=== PATIENT | male | born 1980 | race Caucasian/White ===

== ENCOUNTER 2018-08-21 20:06 | Emergency (ER) | payer OTHER ==
--- NOTE | 2018-08-21 21:32 | ED ---
Bite Injury/Animal - HPI Summary HPI Summary: 37-year-old male presents with dog bite today. He states [place] He states that he was grabbing the dog and was [place] it over [place] the [place] police officer when the dog got scared and bite him on the face and his hand. He states the dog's wedger did not have any information about the dog as it was a new dog to them. He states that he went to the neighboring hospital and was given tetanus but then he left and came here for wound closure. Has no medical conditions. Tetanus was just given today. - History of Current Complaint Chief Complaint: EDAnimalBite Stated Complaint: DOG BITE Time Seen by Provider: 08/21/18 20:16 Pain Intensity: 7 - Allergies/Home Medications Allergies/Adverse Reactions: Allergies Allergy/AdvReac Type Severity Reaction Status Date / Time No Known Allergies Allergy Verified 08/21/18 20:11 Home Medications: Home Medications Ibuprofen TAB* [Advil TAB*] 1,000 mg PO Q6H PRN 08/21/18 [History Confirmed ] PMH/Surg Hx/FS Hx/Imm Hx Endocrine/Hematology History: Denies: Hx Diabetes, Hx Thyroid Disease Cardiovascular History: Denies: Hx Hypertension Respiratory History: Reports: Hx Asthma - in childhood Denies: Hx Chronic Obstructive Pulmonary Disease (COPD) GI History: Denies: Hx Ulcer - Immunization History Date of Tetanus Vaccine: utd Date of Influenza Vaccine: unk Infectious Disease History: Yes Infectious Disease History: Reports: Hx Shingles - last year, History Other Infectious Disease - shingles Denies: Hx Clostridium Difficile, Hx Hepatitis, Hx Human Immunodeficiency Virus (HIV), Traveled Outside the [place] in Last 30 Days - Family History Known Family History: Positive: None - Social History Alcohol Use: Occasionally Hx Substance Use: Yes Substance Use Type: Reports: Marijuana Substance Use Comment - Amount & Last Used: month or two ago Hx Tobacco Use: No Smoking Status (MU): Never Smoked Tobacco Review of Systems Negative: Fever Negative: Chest Pain Negative: Shortness Of Breath Positive: Other - dog bite face and left wrist All Other Systems Reviewed And Are Negative: Yes Physical Exam Triage Information Reviewed: Yes Vital Signs On Initial Exam: Initial Vitals Temp Pulse Resp BP Pulse Ox 99.4 F 104 16 157/90 98 08/21/18 20:06 08/21/18 20:06 08/21/18 20:06 08/21/18 20:06 08/21/18 20:06 Vital Signs Reviewed: Yes Appearance: Positive: Well-Appearing Skin: Positive: Warm, Dry, Other - puncture wounds and scratched left wrist and neck, 3cm by 1/2cm laceration of chin left side Head/Face: Positive: Normal Head/Face Inspection Eyes: Positive: Normal, Conjunctiva Clear ENT: Positive: Pharynx normal Respiratory/Lung Sounds: Positive: Clear to Auscultation, Breath Sounds Present Cardiovascular: Positive: Normal, RRR Musculoskeletal: Positive: Normal Neurological: Positive: Normal Psychiatric: Positive: Normal Procedures - Laceration/Wound Repair face Location: face Description: Irregular Length, Depth and Shape: 3cm by 1/2cm Irrigated w/ Saline (ccs): 1,000 Closure: Skin Adhesive, Single Layer Suture Type: Prolene Number of Sutures: 2 Diagnostics - Vital Signs Vital Signs Temp Pulse Resp BP Pulse Ox 08/21/18 20:06 99.4 F 104 16 157/90 98 - Laboratory Lab Statement: Any lab studies that have been ordered have been reviewed, and results considered in the medical decision making process. Bite Injury Course/Dx - Course Course Of Treatment: 37-year-old male presents with dog bite today. He states he was there was [place] He states that he was grabbing the dog and was handing it over to the [place] police officer when the dog got scared and bite him on the face and his hand. He states the dog's wedger did not have any information about the dog as it was a new dog to them. He states that he went to the neighboring hospital and was given tetanus but then he left and came here for wound closure. Has no medical conditions. Tetanus was just given today. On exam has multiple scratches and puncture wounds on left hand and face. has a 3 1/2cm by 1/2cm laceration of the face. cleaned area extensively and placed 2 sutures and steristrips due to cosmetic reasons. Explained that has a high likelihood of getting infected. Placed on Augmentin. Karishma contacted [facility] and said dog was not in their [place] so to contact [place] and they advised not to treat at moment and will contact patient if needed. warned if develop any signs of infection to return. patient understand and agrees with plan. - Diagnoses Differential Diagnosis/HQI/PQRI: Positive: Laceration, Puncture, Rabies Exposure Provider Diagnosis: Dog bite, Facial laceration Discharge - Sign-Out/Discharge Documenting (check all that apply): Patient Departure Patient Received Moderate/Deep Sedation with Procedure: No - Discharge Plan Condition: Good Disposition: HOME Prescriptions: Amoxicillin/Clavulanate TAB* [Augmentin TAB 875*] 875 mg PO BID #9 tab Patient Education Materials: [facility] (ED) Referrals: No Primary Care Phys,NOPCP [Primary Care Provider] - Additional Instructions: Wash area twice a day with soap and water Take Augmentin twice a day for 5 days suture removal in 5 days Take Tylenol or ibuprofen every 6 hours as needed for pain Ice Return to ED develop fever, spreading redness, or any new or worsening symptoms - Billing Disposition and Condition Condition: GOOD Disposition: Home
[2018-08-21] MEDS ORDERED: Amoxicillin/Clavulanate TAB* 875 MG PO ONE (21:33)
[2018-08-21 23:29] VITALS: BP 132/87
== END 2018-08-21 23:28 | disposition home or self-care (01) ==
LOC: ED 20:06
DX: S61.532A Puncture wound without foreign body of left wrist, initial encounter (principal); S11.93XA Puncture wound without foreign body of unspecified part of neck, initial encounter; S01.81XA Laceration without foreign body of other part of head, initial encounter; W54.0XXA Bitten by dog, initial encounter; Y92.410 Unspecified street and highway as the place of occurrence of the external cause
CPT/HCPCS: 12013; 99283; A9270-GY

== ENCOUNTER → 2018-08-22 19:23 | Emergency (ER) | payer OTHER ==
[~2018-08-22 19:23] MED LIST: Rabies Vaccine (RabAvert)* 2.5 UNITS VIAL IM ONE
[2018-08-22 19:46] VITALS: BP 153/97
--- NOTE | 2018-08-23 22:41 | ED ---
Bite Injury/Animal - HPI Summary HPI Summary: Patient complains of being bit by unknown dog yesterday. Patient was seen and evaluated here. [facility] was contacted and recommended no prophylactic rabies treatment and that they would contact patient after dog in quarantine. Patient feels uncomfortable with the way [facility] department as having situation as he believes are still has dog. Patient wishes to be treated for rabies and is willing to cover caused himself necessary. Patient has been advised caused of treatment may be around or greater than $3000. Patient understands and wishes to continue treatment. Denies any symptoms, injury or pain. - History of Current Complaint Chief Complaint: EDGeneral Stated Complaint: DOG BITE-08/21/18 Time Seen by Provider: 08/22/18 20:21 Hx Obtained From: Patient Onset of Injury: Happened days ago Type of Bite: Animal Has Animal Been Immunized?: Unknown Severity Currently: None Pain Intensity: 0 Pain Scale Used: 0-10 Numeric Associated Signs And Symptoms: Positive: Negative Animal Available for Observation: Yes Animal Control Notified: Yes - Allergies/Home Medications Allergies/Adverse Reactions: Allergies Allergy/AdvReac Type Severity Reaction Status Date / Time No Known Allergies Allergy Verified 08/22/18 19:47 PMH/Surg Hx/FS Hx/Imm Hx Endocrine/Hematology History: Denies: Hx Diabetes, Hx Thyroid Disease Cardiovascular History: Denies: Hx Hypertension Respiratory History: Reports: Hx Asthma - in childhood Denies: Hx Chronic Obstructive Pulmonary Disease (COPD) GI History: Denies: Hx Ulcer History: Denies: Hx Dialysis Sensory History: Denies: Hx Eye Prosthesis Opthamlomology History: Denies: Hx Legally Blind EENT History: Denies: Hx Deafness Neurological History: Denies: Hx Dementia Psychiatric History: Denies: Hx Autism - Immunization History Date of Tetanus Vaccine: utd Date of Influenza Vaccine: unk Infectious Disease History: No Infectious Disease History: Reports: Hx Shingles - last year, History Other Infectious Disease - shingles Denies: Hx Clostridium Difficile, Hx Hepatitis, Hx Human Immunodeficiency Virus (HIV), Traveled Outside the [place] in Last 30 Days - Family History Known Family History: Positive: None - Social History Alcohol Use: Occasionally Hx Substance Use: Yes Substance Use Type: Reports: Marijuana Substance Use Comment - Amount & Last Used: month or two ago Hx Tobacco Use: No Smoking Status (MU): Former Smoker Review of Systems Constitutional: Negative Eyes: Negative ENT: Negative Cardiovascular: Negative Respiratory: Negative Gastrointestinal: Negative Genitourinary: Negative Musculoskeletal: Negative Skin: Other Neurological: Negative Psychological: Normal All Other Systems Reviewed And Are Negative: Yes Physical Exam - Summary Physical Exam Summary: Bite wounds appear to be clean and dry and intact, no erythema or purulent drainage noted. Patient denies any other symptoms. Triage Information Reviewed: Yes Vital Signs On Initial Exam: Initial Vitals Temp Pulse Resp BP Pulse Ox 97.6 F 100 18 153/97 97 08/22/18 19:44 08/22/18 19:44 08/22/18 19:44 08/22/18 19:44 08/22/18 19:44 Vital Signs Reviewed: Yes Appearance: Positive: Well-Appearing Skin: Positive: Warm Head/Face: Positive: Normal Head/Face Inspection Eyes: Positive: Normal Neck: Positive: Supple Respiratory/Lung Sounds: Positive: Clear to Auscultation Cardiovascular: Positive: Normal Abdomen Description: Positive: Nontender Musculoskeletal: Positive: Normal Neurological: Positive: Normal Psychiatric: Positive: Normal AVPU Assessment: Alert - [place] Coma Scale Best Eye Response: 4 - Spontaneous Best Motor Response: 6 - Obeys Commands Best Verbal Response: 5 - Oriented Coma Scale Total: 15 Diagnostics - Vital Signs Vital Signs Temp Pulse Resp BP Pulse Ox 08/22/18 19:44 97.6 F 100 18 153/97 97 - Laboratory Lab Statement: Any lab studies that have been ordered have been reviewed, and results considered in the medical decision making process. Bite Injury Course/Dx - Course Course Of Treatment: Patient complains of being bit by unknown dog yesterday. Patient was seen and evaluated here. [facility] was contacted and recommended no prophylactic rabies treatment and that they would contact patient after dog in quarantine. Patient feels uncomfortable with the way [facility] as having situation as he believes are still has dog. Patient wishes to be treated for rabies and is willing to cover caused himself necessary. Patient has been advised caused of treatment may be around or greater than $3000. Patient understands and wishes to continue treatment. Denies any symptoms, injury or pain. Physical exam:e wounds appear to be clean and dry and intact, no erythema or purulent drainage noted. Patient denies any other symptoms. Patient left before medications arrived. - Diagnoses Provider Diagnosis: Animal bite Discharge - Sign-Out/Discharge Documenting (check all that apply): Patient Departure Patient Received Moderate/Deep Sedation with Procedure: No - Discharge Plan Condition: Stable Disposition: ELOPEMENT Referrals: No Primary Care Phys,NOPCP [Primary Care Provider] - - Billing Disposition and Condition Condition: STABLE Disposition: Elopement
== END | disposition home or self-care (01) ==
LOC: ED 19:23
DX: T14.8XXA Other injury of unspecified body region, initial encounter (principal); W54.0XXA Bitten by dog, initial encounter; Y92.9 Unspecified place or not applicable; Z53.21 Procedure and treatment not carried out due to patient leaving prior to being seen by health care provider; Z87.891 Personal history of nicotine dependence
CPT/HCPCS: 90471; 99282

== ENCOUNTER 2018-08-27 13:01 | Emergency (ER) | payer OTHER ==
[2018-08-27 14:18] VITALS: BP 132/94
--- NOTE | 2018-08-27 15:09 | ED ---
Skin Complaint - HPI Summary HPI Summary: Patient is a 37-year-old male who presents emergency department for suture removal. Patient was bit by a dog on 08/22 and had 2 sutures placed. Patient states he shaved his face today and believes one of the sutures pulled out. Patient denies wound pain, redness swelling or drainage. Symptoms are mild in severity. No modifying factors. - History of Current Complaint Chief Complaint: EDLacSutureRecheck Time Seen by Provider: 08/27/18 13:30 Stated Complaint: SUTURE REMOVAL Hx Obtained From: Patient Pain Intensity: 0 Pain Scale Used: 0-10 Numeric - Allergy/Home Medications Allergies/Adverse Reactions: Allergies Allergy/AdvReac Type Severity Reaction Status Date / Time No Known Allergies Allergy Verified 08/27/18 13:15 PMH/Surg Hx/FS Hx/Imm Hx Previously Healthy: Yes Endocrine/Hematology History: Denies: Hx Diabetes, Hx Thyroid Disease Cardiovascular History: Denies: Hx Hypertension Respiratory History: Reports: Hx Asthma - in childhood Denies: Hx Chronic Obstructive Pulmonary Disease (COPD) GI History: Denies: Hx Ulcer History: Denies: Hx Dialysis Sensory History: Denies: Hx Eye Prosthesis, Hx Legally Blind, Hx Deafness Opthamlomology History: Denies: Hx Eye Prosthesis, Hx Legally Blind Neurological History: Denies: Hx Dementia Psychiatric History: Denies: Hx Autism - Immunization History Date of Tetanus Vaccine: utd Date of Influenza Vaccine: unk Infectious Disease History: No Infectious Disease History: Reports: Hx Shingles - last year, History Other Infectious Disease - shingles Denies: Hx Clostridium Difficile, Hx Hepatitis, Hx Human Immunodeficiency Virus (HIV), Traveled Outside the [place] in Last 30 Days - Family History Known Family History: Positive: None - Social History Occupation: Employed Full-time Lives: With Family Alcohol Use: Occasionally Hx Substance Use: Yes Substance Use Type: Reports: Marijuana Substance Use Comment - Amount & Last Used: month or two ago Hx Tobacco Use: No Smoking Status (MU): Former Smoker Review of Systems Positive: Other - sutures to chin All Other Systems Reviewed And Are Negative: Yes Physical Exam Triage Information Reviewed: Yes Vital Signs On Initial Exam: Initial Vitals Temp Pulse Resp BP Pulse Ox 97.6 F 88 14 136/90 97 08/27/18 13:10 08/27/18 13:10 08/27/18 13:10 08/27/18 13:10 08/27/18 13:10 Vital Signs Reviewed: Yes Appearance: Positive: Well-Appearing - Pt. sitting on bed in NAD. Skin: Positive: Warm, Dry, Other - One suture noted to healing would to chin. No signs of infection Head/Face: Positive: Normal Head/Face Inspection Eyes: Positive: Normal, EOMI Neck: Positive: Supple Neurological: Positive: Normal, CN Intact II-III Psychiatric: Positive: Affect/Mood Appropriate Procedures - Procedure Summary Procedure Summary: One suture removed from chin laceration. Wound is healing well. No signs of infection. Pt. tolerated well. Diagnostics - Vital Signs Vital Signs Temp Pulse Resp BP Pulse Ox 08/27/18 14:17 98.1 F 84 19 132/94 98 08/27/18 13:10 97.6 F 88 14 136/90 97 - Laboratory Lab Statement: Any lab studies that have been ordered have been reviewed, and results considered in the medical decision making process. Course/Dx - Course Course Of Treatment: Patient presenting for suture removal. No signs of infection. One suture was removed, patient had. Pulled other suture out stating. Advised to continue wound care. [facility]. - Differential Diagnoses - Skin Complaint Differential Diagnoses: Abscess, Cellulitis - Diagnoses Provider Diagnoses: Visit for suture removal Discharge - Sign-Out/Discharge Documenting (check all that apply): Patient Departure Patient Received Moderate/Deep Sedation with Procedure: No - Discharge Plan Condition: Good Disposition: HOME Patient Education Materials: Acute Wound Care (ED) Referrals: [facility] [Outside] Additional Instructions: Follow up [facility] if needed Continue wound care Return to ER for redness, swelling, or drainage from wound - Billing Disposition and Condition Condition: GOOD Disposition: Home
== END 2018-08-27 14:17 | disposition home or self-care (01) ==
LOC: ED 13:01
DX: Z48.02 Encounter for removal of sutures (principal); Z87.891 Personal history of nicotine dependence
CPT/HCPCS: 99281